=== PATIENT | female | born 1970 | race Two or more races ===

== ENCOUNTER 2016-09-29 02:17 | Emergency (ER) | payer BC ==
--- NOTE | ~2016-09-29 | CR181 ---
[facility] A Service of [facility] RADIOLOGY TEXT RESULTS PATIENT: MARIA FERNANDA LEONE LOCATION: [place] : [birth year] UNIT #: [id number] AGE: [address]: Raudel Tripp SEX: F ORDER DR: [id number] [facility] [address] [place], [place] [address] [id number] E MR#: [id number] Acc #: [id number] NAME: MARIA FERNANDA LEONE : 1970 SEX: F STUDY DATE/TIME: 09/29/2016 3:17 UNIT: [facility] ROOM: STUDY DESCRIPTION: CR Lumbar Spine 2 or 3 Views Attending Physician: Raudel Tripp P.A.-C. Ordering Physician: Raudel Tripp P.A.-C. Primary Care Physician: Primary Care Physician No MEDICAL IMAGING REPORT This report is preliminary unless electronic signature is present EXAM Lumbar spine, 09/29/2016 HISTORY 46-year-old female in the ED with back pain after fall down stairs tonight. TECHNIQUE Three-view lumbar spine series. FINDINGS The examination is limited by suboptimal radiographic exposure related to patient body habitus. No acute or chronic fracture deformity or other osseous lesion is demonstrated. Mild degenerative disc space narrowing at L2-3. Lumbar vertebral alignment is normal. IMPRESSION 1. No acute osseous abnormality. 2. Mild degenerative disc space narrowing at L2-3. Dictated by... Wilfredo Veliz M.D. THIS IS AN ELECTRONICALLY VERIFIED REPORT Wilfredo Veliz M.D. at 09/29/2016 6:08 AM MARCELO/lima TD: 09/29/2016 04:00 JOB #: [id number] [facility] A Service [facility] RADIOLOGY TEXT RESULTS PATIENT: MARIA FERNANDA LEONE LOCATION: [place] : [birth year] UNIT #: [id number] AGE: [address]: Burckle,Raudel W PAC SEX: F ORDER DR: MEDICAL IMAGING REPORT Page 1 of 1 COPY
--- NOTE | ~2016-09-29 | CR206 ---
[facility] A Service of [facility] RADIOLOGY TEXT RESULTS PATIENT: MARIA FERNANDA LEONE LOCATION: [facility] : [birth year] UNIT #: [id number] AGE: [address]: Raudel Tripp SEX: F ORDER DR: [id number] [facility] [address] [place], [place] [address] [id number] E MR#: [id number] Acc #: [id number] NAME: MARIA FERNANDA LEONE : 1970 SEX: F STUDY DATE/TIME: 09/29/2016 3:20 UNIT: [facility] ROOM: STUDY DESCRIPTION: CR Pelvis 1 or 2 Views Attending Physician: Raudel Tripp P.A.-C. Ordering Physician: Raudel Tripp P.A.-C. Primary Care Physician: Primary Care Physician No MEDICAL IMAGING REPORT This report is preliminary unless electronic signature is present EXAM AP pelvis, 09/29/2016 HISTORY 46-year-old female in the ED with back pain and pelvic pain after fall down stairs tonight. TECHNIQUE Single AP radiograph of the pelvis. FINDINGS The examination is negative. No fracture, dislocation or other acute osseous abnormality is demonstrated. IMPRESSION Negative pelvis. Dictated by... Wilfredo Veliz M.D. THIS IS AN ELECTRONICALLY VERIFIED REPORT Wilfredo Veliz M.D. at 09/29/2016 6:08 AM Zofia TD: 09/29/2016 04:03 JOB #: [id number] MEDICAL IMAGING REPORT Page 1 of 1 COPY
--- NOTE | ~2016-09-29 | CR63 ---
[facility] A Service of [facility] RADIOLOGY TEXT RESULTS PATIENT: MARIA FERNANDA LEONE LOCATION: [facility] : [birth year] UNIT #: [id number] AGE: [address]: Raudel Tripp SEX: F ORDER DR: [id number] [facility] [address] [place], [place] [address] [id number] E MR#: [id number] Acc #: [id number] NAME: MARIA FERNANDA LEONE : 1970 SEX: F STUDY DATE/TIME: 09/29/2016 3:14 UNIT: [facility] ROOM: STUDY DESCRIPTION: CR Chest 2 View Attending Physician: Raudel Tripp P.A.-C. Ordering Physician: Raudel Tripp P.A.-C. Primary Care Physician: Primary Care Physician No MEDICAL IMAGING REPORT This report is preliminary unless electronic signature is present EXAM Chest x-ray, 09/29/2016 HISTORY 46-year-old female complaining of chest pain and back pain after fall down stairs tonight. TECHNIQUE AP and lateral upright chest series. FINDINGS No active disease in the chest. The lungs are clear with no visible pneumothorax, pulmonary infiltrate or pleural effusion. Heart size normal. IMPRESSION Negative chest. Dictated by... Wilfredo Veliz M.D. THIS IS AN ELECTRONICALLY VERIFIED REPORT Wilfredo Veliz M.D. at 09/29/2016 6:08 AM Zofia TD: 09/29/2016 03:59 JOB #: [id number] MEDICAL IMAGING REPORT Page 1 of 1 COPY
== END 2016-09-29 04:34 | disposition home or self-care (01) ==
LOC: CED 02:17
DX: S20.211A Contusion of right front wall of thorax, initial encounter (principal); M54.5 Low back pain; W10.9XXA Fall (on) (from) unspecified stairs and steps, initial encounter; Y92.009 Unspecified place in unspecified non-institutional (private) residence as the place of occurrence of the external cause
CPT/HCPCS: 71020; 72100; 72170; 99283